=== PATIENT | male | born 1945 | race Caucasian/White ===

== ENCOUNTER 2016-12-23 13:01 | Emergency (ER) | payer MEDICARE, OTHER ==
[2016-12-23 13:23] VITALS: TEMP 98.7
[2016-12-23 13:25] LABS: BASOPHILS % (AUTO) 1 % (0-3); EOSINOPHILS % (AUTO) 1 % (0-9); HEMATOCRIT 46 % (39-53); MEAN CORPUSCULAR VOLUME 92 fL (80-100); MONOCYTES % (AUTO) 8.1 % (0-12); NEUTROPHILS % (AUTO) 67.5 % (37-80)
[2016-12-23] MEDS ORDERED: SODIUM CHLORIDE 0.9% 1000ML 1,000 ML IV ONE (13:25)
[2016-12-23 13:44] LABS: ALBUMIN 3.8 gm/dl (3.4-5.0); ALT 20 IU/L (14-63); CALCIUM 8.6 mg/dl (8.5-10.1); GLOM FILT RATE 57 mL/min (>60); POTASSIUM 3.7 mMol/L (3.5-5.1); SODIUM 140 mMol/L (136-145)
[2016-12-23 15:16] VITALS: O2SAT 99
[2016-12-23 15:18] VITALS: BP 126/81; PULSE 69; RESP 20
== END 2016-12-23 16:05 | disposition short-term general hospital (02) | DRG 66 ==
LOC: ED 13:01
DX: I62.01 Nontraumatic acute subdural hemorrhage (principal); R51 Headache
CPT/HCPCS: 70460; 80053; 84484; 85025; 85610; 93005; 99285; Q9967